=== PATIENT | male | born 1985 | race African-American/Black ===

== ENCOUNTER 2016-07-27 03:39 | Emergency (ER) | payer BC ==
[2016-07-27] MEDS ORDERED: BUPIVACAINE HCL 0.5 % INJ/PF 30 ML SDV INJ ONE (06:47)
--- NOTE | 2016-07-27 06:49 | ER Document Report ---
ED General - General Chief Complaint: Toothache Stated Complaint: TOOTHACHE Mode of Arrival: Ambulatory Information source: Patient Notes: 31-year-old male presents with complaints of left molar dental pain of now 3-4 day duration. Patient was seen by a primary care physician will start him on ciprofloxacin. Patient notes that symptoms have worsened since. Denies any fevers or chills admits to a bad taste in his mouth. Patient has had a history of dental issues. Denies any difficulty breathing swallowing or any other respiratory concerns TRAVEL OUTSIDE OF THE [place] IN LAST 30 DAYS: No - HPI Onset: Other - 3-4 day duration Onset/Duration: Persistent Quality of pain: Achy, Sharp Severity: Mild Pain Level: 1 Associated symptoms: Other - Dental pain Exacerbated by: Food Relieved by: Denies Similar symptoms previously: Yes Recently seen / treated by doctor: Yes - Related Data Allergies/Adverse Reactions: amoxicillin [Amoxicillin] Allergy (Verified 03/11/16 04:27) Past Medical History - Social History Smoking Status: Current Every Day Smoker Cigarette use (# per day): Yes Chew tobacco use (# tins/day): No Smoking Education Provided: No Frequency of alcohol use: Occasional Drug Abuse: None Family History: Reviewed & Not Pertinent, Arthritis, CAD, Hyperlipidemia, Hypertension, Malignancy - Past Medical History Cardiac Medical History: Reports: Hx Hypercholesterolemia, Hx Hypertension Pulmonary Medical History: Reports: Hx Asthma Renal/ Medical History: Denies: Hx Peritoneal Dialysis GI Medical History: Reports: Hx Colonoscopy Musculoskeltal Medical History: Reports Hx Musculoskeletal Trauma Traumatic Medical History: Reports: Hx Fractures - right wrist and thumb Past Surgical History: Reports: Hx Adenoidectomy, Hx Tonsillectomy - Immunizations Immunizations up to date: Yes Hx Diphtheria, Pertussis, Tetanus Vaccination: Yes - 2011 Review of Systems - Review of Systems Notes: REVIEW OF SYSTEMS: CONSTITUTIONAL : Denies fever, chills, or sweats. Denies recent illness. EENT: Admits to dental pain CARDIOVASCULAR: Denies chest pain. Denies palpitations or racing or irregular heart beat. Denies ankle edema. RESPIRATORY: Denies cough, cold, or chest congestion. Denies shortness of breath, difficulty breathing, or wheezing. GASTROINTESTINAL: Denies abdominal pain or distention. Denies nausea, vomiting , or diarrhea. Denies blood in vomitus, stools, or per rectum. Denies black, tarry stools. Denies constipation. GENITOURINARY: Denies difficulty urinating, painful urination, burning, frequency, blood in urine, or discharge. MUSCULOSKELETAL: Denies back or neck pain or stiffness. Denies joint pain or swelling. SKIN: Denies rash, lesions or sores. HEMATOLOGIC : Denies easy bruising or bleeding. LYMPHATIC: Denies swollen, enlarged glands. NEUROLOGICAL: Denies confusion or altered mental status. Denies passing out or loss of consciousness. Denies dizziness or lightheadedness. Denies headache. Denies weakness or paralysis or loss of use of either side. Denies problems with gait or speech. Denies sensory loss, numbness, or tingling. Denies seizures. PSYCHIATRIC: Denies anxiety or stress. Denies depression, suicidal ideation, or homicidal ideation. ALL OTHER SYSTEMS REVIEWED AND NEGATIVE. Dictation was performed using [employer] recognition software PHYSICAL EXAMINATION: GENERAL: Well-appearing, well-nourished and in no acute distress. HEAD: Atraumatic, normocephalic. EYES: Pupils equal round extraocular movements intact, conjunctiva are normal. ENT: Left lower molar fractured, no abscess noted NECK: Normal range of motion LUNGS: No respiratory distress Musculoskeletal: Normal range of motion NEUROLOGICAL: Normal speech, normal gait. PSYCH: Normal mood, normal affect. SKIN: Warm, Dry, normal turgor, no rashes or lesions noted. Physical Exam - Vital signs Vitals: Temp Pulse Resp BP Pulse Ox 98.4 F 77 18 151/97 H 97 07/27/16 03:43 07/27/16 03:43 07/27/16 03:43 07/27/16 03:43 07/27/16 03:43 Course - Re-evaluation Re-evalutation: 07/27/16 18:44 A left inferior alveolar nerve block was performed with complete resolution of the patient's pain. He will be discharged home with antibiotics. Patient has been instructed to stop taking Cipro for his dental pain. - Vital Signs Vital signs: Temp Pulse Resp BP Pulse Ox 98.0 F 68 18 160/95 H 98 07/27/16 07:25 07/27/16 07:25 07/27/16 07:25 07/27/16 07:25 07/27/16 07:25 Procedures - Additional Procedures inferior alveolar nerve block Time performed: 08:00 - left inferior alveolar nerve block performed using 0.5% Sensorcaine 5 mL with complete resolution complication Discharge - Discharge Clinical Impression: Tooth pain, dental fracture, Encounter for smoking cessation counseling Condition: Stable Disposition: HOME, SELF-CARE Instructions: Toothache ([facility]) Additional Instructions: Please follow up with your dentist on per your previous appt Prescriptions: Clindamycin HCl 300 mg PO Q6 #40 capsule Hydrocodone/Acetaminophen [[place] 5-325 mg Tablet] 1 tab PO Q6 #10 tablet Forms: Smoking Cessation Education
[2016-07-27 07:26] VITALS: BP 160/95
== END 2016-07-27 07:27 | disposition home or self-care (01) ==
LOC: ER 03:39
PROC: 3E0T3BZ Introduction of Anesthetic Agent into Peripheral Nerves and Plexi, Percutaneous Approach (ICD-10-PCS; principal; 2016-07-27)
DX: K08.89 Other specified disorders of teeth and supporting structures (principal); R43.8 Other disturbances of smell and taste; F17.210 Nicotine dependence, cigarettes, uncomplicated; I10 Essential (primary) hypertension; J45.909 Unspecified asthma, uncomplicated; Z88.0 Allergy status to penicillin
CPT/HCPCS: 99282

== ENCOUNTER 2016-08-26 18:36 | Emergency (ER) | payer BC ==
[2016-08-26 22:09] LABS: APPEARANCE,URINE CLEAR; BILIRUBIN,URINE NEGATIVE (NEGATIVE); GLUCOSE, URINE NEGATIVE (NEGATIVE); KETONES,URINE NEGATIVE (NEGATIVE); LEUKOCYTE ESTERASE,URINE NEGATIVE (NEGATIVE); NITRITE,URINE NEGATIVE (NEGATIVE); PROTEIN,URINE NEGATIVE (NEGATIVE); URINE SPECIFIC GRAVITY 1.006; UROBILINOGEN,URINE NEGATIVE mg/dL (<2.0)
--- NOTE | 2016-08-26 23:02 | ER Document Report ---
ED General - General Chief Complaint: Back Pain Stated Complaint: ABDOMINAL PAIN, BACK PAIN Notes: Patient is a 31 year old male who presents with complaint of having some darkening of his urine, some pain to his lower back or both kidneys, and some mild sure you. He says since arriving to ER he's been drinking water and a lot of his symptoms have cleared and improved and his urine seems be clear. He is working in the heat for last several days. 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 He's had no diarrhea. No vomiting. No fevers. He denies concerns for sexually transmitted disease. He said no abnormal discharge from his penis. He says some pain does radiate into the genital area. He has not had redness or swelling to the genitals. TRAVEL OUTSIDE OF THE [place] IN LAST 30 DAYS: No - Related Data Allergies/Adverse Reactions: amoxicillin [Amoxicillin] Allergy (Verified 03/11/16 04:27) Past Medical History - Social History Smoking Status: Never Smoker Frequency of alcohol use: None Drug Abuse: None Family History: Reviewed & Not Pertinent, Arthritis, CAD, Hyperlipidemia, Hypertension, Malignancy Patient has suicidal ideation: No Patient has homicidal ideation: No - Past Medical History Cardiac Medical History: Reports: Hx Hypercholesterolemia, Hx Hypertension Pulmonary Medical History: Reports: Hx Asthma Renal/ Medical History: Denies: Hx Peritoneal Dialysis GI Medical History: Reports: Hx Colonoscopy Musculoskeltal Medical History: Reports Hx Musculoskeletal Trauma Traumatic Medical History: Reports: Hx Fractures - right wrist and thumb Past Surgical History: Reports: Hx Adenoidectomy, Hx Tonsillectomy - Immunizations Immunizations up to date: Yes Hx Diphtheria, Pertussis, Tetanus Vaccination: Yes - 2011 Review of Systems - Review of Systems Notes: My Normal Review Basic REVIEW OF SYSTEMS: CONSTITUTIONAL : Denies fever, chills, or sweats. Denies recent illness. RESPIRATORY: Denies cough, cold, or chest congestion. Denies shortness of breath, difficulty breathing, or wheezing. GASTROINTESTINAL: Denies abdominal pain. Denies nausea, vomiting, or diarrhea. Denies constipation. Last BM: GENITOURINARY: Some dysuria. Dark-colored urine. MUSCULOSKELETAL: Bilateral positive Keagan's sign. SKIN: Denies rash or skin lesions. NEUROLOGICAL: Denies altered mental status or loss of consciousness. Denies headache. ALL OTHER SYSTEMS REVIEWED AND NEGATIVE. Physical Exam - Vital signs Vitals: Temp Pulse Resp BP Pulse Ox 98.9 F 93 18 162/99 H 99 08/26/16 19:05 08/26/16 19:05 08/26/16 19:05 08/26/16 19:05 08/26/16 19:05 - Notes Notes: General Appearance: Well nourished, alert, cooperative, no acute distress, no obvious discomfort. Well-appearing. Vitals: reviewed, See vital signs table. Head: no swelling or tenderness to the head Eyes: PERRL, EOMI, Conjuctiva clear Mouth: No decreasd moisture Lungs: No wheezing, No rales, No rhonci, No accessory muscle use, good air exchange bilaterally. Heart: Normal rate, Regular rythm, No murmur, no rub Abdomen: Normal BS, soft, No rigidity, No abdominal tenderness, No guarding, no rebound, no abdominal masses, no organomegaly Genital: No redness or inflammation or swelling to the genitalia. No abnormal discharge. Back: Bilateral positive Keagan sign is worse on the left. Extremities: strength 5/5 in all extremities, good pulses in all extremities, no swelling or tenderness in the extremities, no edema. Skin: warm, dry, appropriate color, no rash Neuro: speech clear, oriented x 3, normal affect, responds appropriately to questions. Course - Vital Signs Vital signs: Temp Pulse Resp BP Pulse Ox 97.8 F 62 18 136/76 H 97 08/27/16 00:48 08/27/16 00:48 08/27/16 00:48 08/27/16 00:48 08/27/16 00:48 - Laboratory Result Diagrams: 08/26/16 23:15 Laboratory results interpreted by me: 08/26/16 08/26/16 19:10 23:15 BUN 21 H Creatinine 1.97 H Est GFR ( Amer) 49 L Est GFR (Non-Af Amer) 40 L Creatine Kinase 461 H Urine Blood MODERATE H - Transfer of Care Notes: 08/27/16 06:49 I suspect the patient's doctor and he was having as well as back pain is probably related dehydration. He had been working out in the heat for last 2 days. His urinalysis showed no signs of infection. There was small blood. His creatinine is slightly elevated. I informed him that he needs to continue drink lots of liquids to stay out of heat for neck supple days. I encourage him to have his creatinine and urinalysis rechecked on Monday. Encouraged return to ER if has any worsening of his symptoms. Patient agrees with plan will be discharged home. Informed patient that he cannot take Motrin, ibuprofen , Advil, or any NSAID medications. I encouraged him to take Tylenol for pain. Dictation of this chart was performed using voice recognition software; therefore, there may be some unintended grammatical errors. Discharge - Discharge Clinical Impression: Hematuria, Dehydration, Renal insufficiency Disposition: HOME, SELF-CARE Additional Instructions: Please drink lots of noncaffeinated and nonalcoholic liquids over the next 48 hours. Do not go into the heat at all over the next 48 hours. Please follow up with your doctor or the ER on Monday to have your urine and kidney function rechecked. Return to the ER immediately if you feel unwell in any way.
[2016-08-26] MEDS ORDERED: ACETAMINOPHEN 325 MG TABLET PO ONE (23:48)
[2016-08-26 23:49] LABS: ANION GAP 14 (5-19); BLOOD UREA NITROGEN 21 mg/dL (7-20); CALCIUM 9.7 mg/dL (8.4-10.2); CARBON DIOXIDE 24 mmol/L (22-30); CHLORIDE 106 mmol/L (98-107); CREATINE KINASE 461 U/L (55-170); CREATININE RESULT 1.97 mg/dL (0.52-1.25); GLUCOSE 95 mg/dL (75-110); SODIUM 144.3 mmol/L (137-145)
[2016-08-26 23:50] LABS: POTASSIUM 4.5 mmol/L (3.6-5.0)
[2016-08-27 00:50] VITALS: BP 136/76
== END 2016-08-27 00:50 | disposition home or self-care (01) ==
LOC: ER 18:36
DX: R31.9 Hematuria, unspecified (principal); E86.0 Dehydration; N28.9 Disorder of kidney and ureter, unspecified; R30.0 Dysuria; I10 Essential (primary) hypertension; Z88.0 Allergy status to penicillin; J45.909 Unspecified asthma, uncomplicated
CPT/HCPCS: 36415; 76770; 80048; 81001; 82550; 82962; 99284

== ENCOUNTER 2018-04-22 00:40 | Emergency (ER) | payer BC ==
[2018-04-22] MEDS ORDERED: ACETAMINOPHEN 325 MG TABLET PO ONE (01:16)
[2018-04-22] MEDS ORDERED: KETOROLAC TROMETHAMINE 60 MG/2 ML SDV IM ONE (01:16)
[2018-04-22] MEDS ORDERED: CLINDAMYCIN HCL 150 MG CAPSULE PO ONE (01:17)
[2018-04-22] MEDS ORDERED: BENZONATATE 100 MG CAPSULE PO ONE (01:17)
--- NOTE | 2018-04-22 01:18 | ER Document Report ---
ED General - General Chief Complaint: Toothache Stated Complaint: TOOTHACHE Time Seen by Provider: 04/22/18 01:16 Notes: Patient is a 33-year-old male without chronic medical problems who presents with several days of progressively worsening left posterior left mandibular molar pain. Patient states that he saw his dentist, had a Placed without root canal and that the pain has now gotten progressively worse since that time. He saw his dentist, started on clindamycin but has not yet filled the prescription. He states that he has a dull, constant, severe throbbing pain to the affected area that has been worsening over the past several days. He states it is now preventing him from sleeping. He has tried aggressive doses of ibuprofen up to 1600 mg per dose which provides only minimal relief. States that any attempt at eating or drinking worsens the pain. No difficulty breathing or swallowing. No fever or constitutional symptoms. States this feels similar to when he has had dental infections in the past. TRAVEL OUTSIDE OF THE [place] IN LAST 30 DAYS: No - Related Data Allergies/Adverse Reactions: amoxicillin [Amoxicillin] Allergy (Verified 03/11/16 04:27) Past Medical History - General Information source: Patient - Social History Smoking Status: Current Every Day Smoker Frequency of alcohol use: None Drug Abuse: None Lives with: Alone Family History: Reviewed & Not Pertinent, Arthritis, CAD, Hyperlipidemia, Hypertension, Malignancy Patient has suicidal ideation: No Patient has homicidal ideation: No - Past Medical History Cardiac Medical History: Reports: Hx Hypercholesterolemia, Hx Hypertension Pulmonary Medical History: Reports: Hx Asthma Renal/ Medical History: Denies: Hx Peritoneal Dialysis GI Medical History: Reports: Hx Colonoscopy Musculoskeletal Medical History: Reports Hx Musculoskeletal Trauma Traumatic Medical History: Reports: Hx Fractures - right wrist and thumb Past Surgical History: Reports: Hx Adenoidectomy, Hx Tonsillectomy - Immunizations Immunizations up to date: Yes Hx Diphtheria, Pertussis, Tetanus Vaccination: Yes - 2011 Review of Systems - Review of Systems Notes: Constitutional: Negative for fever. HENT: Positive for dental pain Eyes: Negative for visual changes. Cardiovascular: Negative for chest pain. Respiratory: Negative for shortness of breath. Gastrointestinal: Negative for abdominal pain, vomiting or diarrhea. Genitourinary: Negative for dysuria. Musculoskeletal: Negative for back pain. Skin: Negative for rash. Neurological: Negative for headaches, weakness or numbness. 10 point ROS negative except as marked above and in HPI. Physical Exam - Vital signs Vitals: Temp Pulse Resp BP Pulse Ox 98.9 F 67 18 170/100 H 96 04/22/18 00:56 04/22/18 00:56 04/22/18 00:56 04/22/18 00:56 04/22/18 00:56 Interpretation: Hypertensive Notes: PHYSICAL EXAMINATION: GENERAL: Well-appearing, well-nourished and in no acute distress. HEAD: Atraumatic, normocephalic. EYES: Pupils equal round and reactive to light, extraocular movements intact, sclera anicteric, conjunctiva are normal. ENT: nares patent, oropharynx clear without exudates. Moist mucous membranes. There is a small crack to the posterior aspect of the most posterior left mandibular molar without associated gumline swelling or facial swelling. Uvula is midline. Airway is widely patent. NECK: Normal range of motion, supple without lymphadenopathy LUNGS: Breath sounds clear to auscultation bilaterally and equal. No wheezes rales or rhonchi. HEART: Regular rate and rhythm without murmurs ABDOMEN: Soft, nontender, normoactive bowel sounds. No guarding, no rebound. No masses appreciated. EXTREMITIES: Normal range of motion, no pitting or edema. No cyanosis. NEUROLOGICAL: No focal neurological deficits. Moves all extremities spontaneously and on command. PSYCH: Normal mood, normal affect. SKIN: Warm, Dry, normal turgor, no rashes or lesions noted. Course - Re-evaluation Re-evalutation: 04/22/18 01:17 Presentation is most consistent with likely an infected tooth. Airway is patent. Vitals within normal limits. Patient is able swallow without any difficulty. There is no significant facial swelling. No evidence of Yifan angina, apical abscess, or airway obstruction. Patient already has antibiotics prescribed to him but has not yet started them. I've instructed to follow-up with dentistry as earliest ability for definitive management. At this time will discharge with return precautions and follow-up recommendations. Verbal discharge instructions given a the bedside and opportunity for questions given. Medication warnings reviewed. Patient is in agreement with this plan and has verbalized understanding of return precautions and the need for primary care follow-up in the next 24-72 hours. - Vital Signs Vital signs: Temp Pulse Resp BP Pulse Ox 98.5 F 70 18 159/90 H 98 04/22/18 02:27 04/22/18 02:27 04/22/18 02:27 04/22/18 02:27 04/22/18 02:27 Discharge - Discharge Clinical Impression: Pain, dental Condition: Good Disposition: HOME, SELF-CARE Additional Instructions: You have been seen for dental pain. It is very important that you follow-up with a dentist for definitive care. Please return if you develop fever greater than 101, swelling in your face, vomiting, difficulty breathing or swallowing, or any other symptoms that are concerning to you. For your pain: Take ibuprofen 600 mg and acetaminophen 1000 mg every 6 hours together as needed for pain.
[2018-04-22] MEDS ORDERED: HYDROCODONE/ACETAMINOPHEN 5-325 MG (6 TAB/ER DISP) PO PRN (01:26)
[2018-04-22] MEDS ORDERED: CLINDAMYCIN HCL 150 MG CAPSULE ONE (02:04)
[2018-04-22 02:28] VITALS: BP 159/90
== END 2018-04-22 02:22 | disposition home or self-care (01) ==
LOC: ER 00:40
DX: K08.89 Other specified disorders of teeth and supporting structures (principal); F17.200 Nicotine dependence, unspecified, uncomplicated; I10 Essential (primary) hypertension; J45.909 Unspecified asthma, uncomplicated
CPT/HCPCS: 99282; 96372; J1885

== ENCOUNTER 2019-05-30 08:43 | Emergency (ER) | payer BC ==
[2019-05-30] MEDS ORDERED: ALBUTEROL SULFATE 0.083% NEB 2.5 MG/3 ML AMPUL NEB ONE (09:33)
--- NOTE | 2019-05-30 09:34 | ER Document Report ---
HPI - HPI Patient complains to provider of: Upper respiratory symptoms Time Seen by Provider: 05/30/19 09:29 Pain Level: 3 Notes: 34-year-old male to the emergency department with complaints of cough chest congestion chest tightness that began yesterday. He states that it is gotten worse overnight. He states his has a similar symptom but it seems to be more in her head and in her chest. He admits to fevers and chills. He did take Tylenol prior to arrival. He states that when his fever breaks he sweats. He denies any chest pain, shortness of breath. He does admit to body aches. He did not get a flu shot this season. He is a smoker. He has a history of childhood asthma. He has never been hospitalized or intubated. - ROS Systems Reviewed and Negative: Yes All other systems reviewed and negative - CONSTITUTIONAL Constitutional: REPORTS: Fever. DENIES: Chills - EENT EENT: REPORTS: Sore Throat, Congestion - NEURO Neurology: REPORTS: Headache - RESPIRATORY Respiratory: REPORTS: Coughing. DENIES: Trouble Breathing - GASTROINTESTINAL Gastrointestinal: DENIES: Abdominal Pain, Nausea, Patient vomiting, Diarrhea, Constipation - MUSCULOSKELETAL Musculoskeletal: REPORTS: Extremity pain - DERM Skin Color: Normal Skin Problems: None Past Medical History - General Information source: Patient - Social History Smoking Status: Current Every Day Smoker Frequency of alcohol use: Occasional Drug Abuse: None Lives with: Spouse/Significant other Family History: Reviewed & Not Pertinent, Arthritis, CAD, Hyperlipidemia, Hypertension, Malignancy Patient has suicidal ideation: No Patient has homicidal ideation: No - Past Medical History Cardiac Medical History: Reports: Hx Hypercholesterolemia, Hx Hypertension Pulmonary Medical History: Reports: Hx Asthma Renal/ Medical History: Denies: Hx Peritoneal Dialysis GI Medical History: Reports: Hx Colonoscopy Musculoskeletal Medical History: Reports Hx Musculoskeletal Trauma Traumatic Medical History: Reports: Hx Fractures - right wrist and thumb Past Surgical History: Reports: Hx Adenoidectomy, Hx Tonsillectomy - Immunizations Immunizations up to date: Yes Hx Diphtheria, Pertussis, Tetanus Vaccination: Yes - 2011 Vertical Provider Document - CONSTITUTIONAL Agree With Documented VS: Yes Exam Limitations: No Limitations General Appearance: WD/WN, No Apparent Distress - INFECTION CONTROL TRAVEL OUTSIDE OF THE [place] IN LAST 30 DAYS: No - HEENT HEENT: Atraumatic, Normal ENT Exam, Normocephalic, PERRLA. negative: Pharyngeal Exudate, Pharyngeal Tenderness, Pharyngeal Erythema - NECK Neck: Normal Inspection, Supple - RESPIRATORY Respiratory: Breath Sounds Normal, No Respiratory Distress. negative: Rales, Rhonchi, Wheezing - CARDIOVASCULAR Cardiovascular: Regular Rate, Regular Rhythm, No Murmur - GI/ABDOMEN Gastrointestinal: Abdomen Soft, Abdomen Non-Tender - BACK Back: Normal Inspection - MUSCULOSKELETAL/EXTREMETIES Musculoskeletal/Extremeties: MAEW, FROM, Non-Tender - NEURO Level of Consciousness: Awake, Alert - DERM Integumentary: Warm, Dry, No Rash Course - Re-evaluation Re-evalutation: 06/01/19 Impression: Flulike syndrome, cough. His symptoms just started 2 days ago. Chest x-ray is negative for pneumonia. Will discharge home with symptomatic relief. Encouraged to return if any worsening. Encouraged to push fluids. Patient agrees with plan - Vital Signs Vital signs: Temp Pulse Resp BP Pulse Ox 99.6 F 119 H 20 175/95 H 94 05/30/19 08:48 05/30/19 08:48 05/30/19 08:48 05/30/19 08:48 05/30/19 08:48 Discharge - Discharge Clinical Impression: Flu-like symptoms, Cough Condition: Stable Disposition: HOME, SELF-CARE Instructions: Influenza ([facility]) Additional Instructions: Push fluids. Alternate between Tylenol Motrin for fever control. Use cough medicine as prescribed, use inhaler, take steroids. Return if worsening symptoms such as chest pain, worsening shortness of breath, inability to keep medicines down, or any other complaints. Prescriptions: Methylprednisolone [Medrol Dosepack (4 mg/Tab) 21 Tab/Dosepak] 4 mg PO ASDIR PRN #21 tab.ds.pk PRN Reason: Albuterol Sulfate [Proair HFA Inhalation Aerosol 8.5 gm MDI] 2 puff IH Q4H PRN #1 mdi PRN Reason: Promethazine/Dextromethorphan [Promethazine-Dm Syrup] 5 ml PO QID #118 ml Forms: Return to Work Referrals: [facility] [Provider Group] - Follow up as needed
--- NOTE | 2019-05-30 10:13 | RADIOLOGY REPORT (SQ) ---
EXAM DESCRIPTION: CHEST 2 VIEWS COMPLETED DATE/TIME: 05/30/2019 9:55 am REASON FOR STUDY: cough, chest congestion, chest tightness COMPARISON: Two-view chest 05/03/2015 EXAM PARAMETERS: NUMBER OF VIEWS: two views TECHNIQUE: Digital Frontal and Lateral radiographic views of the chest acquired. RADIATION DOSE: NA LIMITATIONS: none FINDINGS: LUNGS AND PLEURA: No opacities, masses or pneumothorax. No pleural effusion. MEDIASTINUM AND HILAR STRUCTURES: No masses or contour abnormalities. HEART AND VASCULAR STRUCTURES: Heart normal size. No evidence for failure. BONES: No acute findings. HARDWARE: None in the chest. OTHER: No other significant finding. IMPRESSION: NO ACUTE RADIOGRAPHIC FINDING IN THE CHEST. TECHNICAL DOCUMENTATION: JOB ID: [id number] [employer]- All Rights Reserved Reading location - IP/workstation name: [facility]
[2019-05-30 10:42] VITALS: BP 138/82
== END 2019-05-30 10:51 | disposition home or self-care (01) ==
LOC: ER 08:43
DX: J02.9 Acute pharyngitis, unspecified (principal); R07.89 Other chest pain; R05 Cough; M79.10 Myalgia, unspecified site; R51 Headache; F17.200 Nicotine dependence, unspecified, uncomplicated; E78.00 Pure hypercholesterolemia, unspecified; I10 Essential (primary) hypertension
CPT/HCPCS: 71046; 94640; 99283

== ENCOUNTER 2019-06-02 20:20 | Emergency (ER) | payer BC ==
[2019-06-02] MEDS ORDERED: IPRATROPIUM/ALBUTEROL 0.5-2.5 MG/3 ML AMPUL NEB ONE (20:48)
[2019-06-02] MEDS ORDERED: NORMAL SALINE 1000 ML 1,000 ML IV ONE (20:48)
--- NOTE | 2019-06-02 20:49 | ER Document Report ---
ED Medical Screen (RME) - General Chief Complaint: Flu Symptoms Stated Complaint: SHORTNESS OF BREATH Time Seen by Provider: 06/02/19 20:42 Notes: Patient is a 34-year-old male who presents the emergency department with a chief complaint of shortness of breath. He was seen here on May 30 and was diagnosed with flulike symptoms. He was started on a Medrol Dosepak, albuterol, and Promethazine DM. He states that he still short of breath. Patient has quit smoking as of this past Monday when he was seen here in the emergency department. He has a history of asthma. Exam: Oxygen saturation 92% on room air. Diminished breath sounds throughout all lung rivera. I have greeted and performed a rapid initial assessment of this patient. A comprehensive ED assessment and evaluation of the patient, analysis of test results and completion of medical decision making process will be conducted by an additional ED providers. TRAVEL OUTSIDE OF THE [place] IN LAST 30 DAYS: No - Related Data Allergies/Adverse Reactions: amoxicillin [Amoxicillin] Allergy (Verified 03/11/16 04:27) Home Medications: steriod. albuterol. cough med. ibuprofen Past Medical History - Past Medical History Cardiac Medical History: Reports: Hx Hypercholesterolemia, Hx Hypertension Pulmonary Medical History: Reports: Hx Asthma Renal/ Medical History: Denies: Hx Peritoneal Dialysis GI Medical History: Reports: Hx Colonoscopy Musculoskeltal Medical History: Reports Hx Musculoskeletal Trauma Traumatic Medical History: Reports: Hx Fractures - right wrist and thumb Past Surgical History: Reports: Hx Adenoidectomy, Hx Tonsillectomy - Immunizations Immunizations up to date: Yes Hx Diphtheria, Pertussis, Tetanus Vaccination: Yes - 2011 Physical Exam - Vital signs Vitals: Temp Pulse Resp BP Pulse Ox 98.1 F 110 H 22 H 132/71 H 92 06/02/19 20:27 06/02/19 20:27 06/02/19 20:27 06/02/19 20:27 06/02/19 20:27 Course - Vital Signs Vital signs: Temp Pulse Resp BP Pulse Ox 98.1 F 110 H 22 H 132/71 H 92 06/02/19 20:27 06/02/19 20:27 06/02/19 20:27 06/02/19 20:27 06/02/19 20:27
[2019-06-02] MEDS ORDERED: METHYLPREDNISOLONE INJ 125 MG/2 ML SDV IV ONE (20:51)
[2019-06-02] MEDS ORDERED: PREDNISONE 20 MG TABLET PO ONE (21:23)
--- NOTE | 2019-06-02 21:38 | ER Document Report ---
Entered by LONA PAREDES SCRIBE 06/02/[id number] Acting as scribe for:JEVON PANG IV, MD ED General - General Chief Complaint: Flu Symptoms Stated Complaint: SHORTNESS OF BREATH Time Seen by Provider: 06/02/19 20:42 Mode of Arrival: Ambulatory Information source: Patient Notes: This 34 year old male patient with a history of asthma presents to the ED today with complaints of shortness of breath that began prior to arrival. Patient states that experienced shortness of breath when he walked a short distance from his bed to the bathroom. Patient notes that he has never had these symptoms before even as a child with asthma. Patient states that he was seen here x3 days ago for flu-like symptoms and was prescribed Medrol Dosepak, albuterol, and Promethazine DM. Patient notes that he recently stopped smoking x5 days ago and that went he quit smoking the first time, he was able to refrain from smoking with Chantix for x2 years. TRAVEL OUTSIDE OF THE [place] IN LAST 30 DAYS: No - Related Data Allergies/Adverse Reactions: amoxicillin [Amoxicillin] Allergy (Verified 03/11/16 04:27) Home Medications: steriod. albuterol. cough med. ibuprofen Past Medical History - General Information source: Patient - Social History Smoking Status: Former Smoker Cigarette use (# per day): No Chew tobacco use (# tins/day): No Smoking Education Provided: No Family History: Reviewed & Not Pertinent, Arthritis, CAD, Hyperlipidemia, Hypertension, Malignancy Patient has suicidal ideation: No Patient has homicidal ideation: No - Past Medical History Cardiac Medical History: Reports: Hx Hypercholesterolemia, Hx Hypertension Pulmonary Medical History: Reports: Hx Asthma GI Medical History: Reports: Hx Colonoscopy Musculoskeletal Medical History: Reports Hx Musculoskeletal Trauma Traumatic Medical History: Reports: Hx Fractures - right wrist and thumb Past Surgical History: Reports: Hx Adenoidectomy, Hx Tonsillectomy - Immunizations Immunizations up to date: Yes Hx Diphtheria, Pertussis, Tetanus Vaccination: Yes - 2011 Review of Systems - Review of Systems Constitutional: Other - Flu-like symptoms EENT: No symptoms reported Cardiovascular: No symptoms reported Respiratory: See HPI, Short of breath Gastrointestinal: No symptoms reported Genitourinary: No symptoms reported Male Genitourinary: No symptoms reported Musculoskeletal: No symptoms reported Skin: No symptoms reported Hematologic/Lymphatic: No symptoms reported Neurological/Psychological: No symptoms reported -: Yes All other systems reviewed and negative Physical Exam - Vital signs Vitals: Temp Pulse Resp BP Pulse Ox 98.1 F 110 H 22 H 132/71 H 92 06/02/19 20:27 06/02/19 20:27 06/02/19 20:27 06/02/19 20:27 06/02/19 20:27 - General General appearance: Alert - HEENT Head: Normocephalic, Atraumatic Eyes: Normal Pupils: PERRL - Respiratory Respiratory status: No respiratory distress Chest status: Nontender Breath sounds: Normal Chest palpation: Normal - Cardiovascular Rhythm: Regular Heart sounds: Normal auscultation Murmur: No - Abdominal Inspection: Normal Distension: No distension Bowel sounds: Normal Tenderness: Nontender Organomegaly: No organomegaly - Back Back: Normal, Nontender - Extremities General upper extremity: Normal inspection General lower extremity: Normal inspection - Neurological Neuro grossly intact: Yes - Psychological Associated symptoms: Normal affect, Normal mood - Skin Skin Temperature: Warm Skin Moisture: Dry Skin Color: Normal Course - Re-evaluation Re-evalutation: 06/02/19 22:12 Results of ED MSE discussed with patient. All questions were answered prior to discharge. Emergency signs and symptoms, reasons to return to the emergency dep artment discussed with patient. - Vital Signs Vital signs: Temp Pulse Resp BP Pulse Ox 98.1 F 110 H 22 H 132/71 H 92 06/02/19 20:27 06/02/19 20:27 06/02/19 20:27 06/02/19 20:27 06/02/19 20:27 - Laboratory Result Diagrams: 06/02/19 21:16 06/02/19 21:16 - Diagnostic Test Radiology reviewed: Reports reviewed Discharge - Discharge Clinical Impression: Encounter for tobacco use cessation counseling Acute bronchitis Qualifiers: Bronchitis organism: unspecified organism Qualified Code(s): J20.9 - Acute bronchitis, unspecified Condition: Good Disposition: HOME, SELF-CARE Additional Instructions: Return to the Emergency Department without delay if any worse. HOME CARE INSTRUCTIONS & INFORMATION: Thank you for choosing us for your medical needs. We hope you're satisfied with the care you received. After you leave, you must properly care for your problem and, at the same time, observe its progress. Any condition can change. Some illnesses can change rapidly over hours or days. If your condition worsens, return to the Emergency Department or see your physician promptly. ABOUT YOUR X-RAYS AND EKG'S: If you had an EKG or X-rays taken, they have been read by the Emergency Physician. The X-rays and EKG's will also be read by a Radiologist or Rock Loader within 24 hours. If discrepancies are noted, you will be notified by telephone. Please be certain the ED has a correct telephone number & address where you can be reached. Also, realize that some fractures or abnormalities do not show up on initial X-rays. If your symptoms continue, see your physician. ABOUT YOUR LABORATORY TEST: If you had laboratory tests, the results have been reviewed by the Emergency Physician. Some test results (for example cultures) may not be available for several days. You will be contacted if any test result shows you need additional treatment. Please be certain the ED has a correct telephone number and address where you can be reached. ABOUT YOUR MEDICATIONS: You will receive instructions on how to take your medi cine on the prescription label you receive. Additional information may be provided by the Pharmacy. If you have questions afterwards, call the ED for clarification or further instructions. Some prescribed medications may cause drowsiness. Do not perform tasks such as driving a car or operating machinery without consulting your Pharmacist. If you feel you need a refill of pain medication, your condition will need re-evaluation. Please do not call for a refill of any medication. ABOUT YOUR SIGNATURE: Signature of this document acknowledges to followin. Understanding that you received emergency treatment and that you may be released before al medical problems are known or treated. Please be certain the ED has a correct phone number & address where you can be reached. 2. Acknowledgement that you will arrange for follow-up care as recommended. 3. Authorization for the Emergency Physician to provide information to your follow-up Physician in order to maximize your care. AT ANY TIME, IF YOUR SYMPTOMS CHANGE SIGNIFICANTLY OR WORSEN OR YOU DEVELOP NEW SYMPTOMS, RETURN TO THE EMERGENCY DEPARTMENT IMMEDIATELY FOR RE-EVALUATION. OUR GOAL IS TO PROVIDE EXCELLENT MEDICAL CARE! WE HOPE THAT WE HAVE MET YOUR EXPECTATIONS DURING YOUR EMERGENCY DEPARTMENT VISIT AND THAT YOU FEEL YOU HAVE RECEIVED EXCELLENT CARE! Stop Smoking You should stop smoking. The tar and chemicals in cigarette smoke are reed rmful. Smoking has been shown to cause: Emphysema and chronic bronchitis Lung cancer Cancer of the mouth, larynx, stomach, and pancreas Heart disease and stroke Stillbirths and miscarriage Premature aging In addition, smoking increases the chances of respiratory infections and ear infections in children of smokers, and increases the risk of cancer in persons exposed to second-hand smoke. Classes are available to help you stop smoking. If you are serious about wanting to quit, we can help arrange this therapy for you, or you can contact the local lung or cancer association. Bronchitis You have acute bronchitis. This disease is an infection or inflammation of the air passageways in your lungs. Symptoms usually include cough, low grade fever, shortness of breath, and wheezing. The cough usually persists for a c ouple of weeks. Most cases of bronchitis get better without antibiotics. We prescribe antibiotics when we believe bacteria are damaging your airways, or if there's high risk the bronchitis will worsen into pneumonia. Increase your fluid intake. A cool mist humidifier may make your lungs more comfortable. An expectorant (cough medicine that loosens phlegm) can help. If you smoke, STOP!!! Recovery from bronchitis can be somewhat slow, but you should see improvement within a day or two. Repeated episodes of bronchitis may result in lung damage -- for example, chronic bronchitis, recurrent pneumonias, or emphysema. Call the doctor if you develop increasing fever, shortness of breath, chest pain, bloody sputum, or otherwise worsen. If you have not improved at all after several days, contact the physician. Prescriptions: Prednisone [Deltasone 20 mg Tablet] 3 tab PO DAILY 4 Days #12 tablet Albuterol Sulfate [Proair HFA Inhalation Aerosol 8.5 gm MDI] 2 puff IH Q4H PRN #1 mdi PRN Reason: I personally performed the services described in the documentation, reviewed and edited the documentation which was dictated to the scribe in my presence, and it accurately records my words and actions.
[2019-06-02 21:43] LABS: ABSOLUTE LYMPHOCYTES (AUTO) 1.7 10^3/uL (0.5-4.7); ABSOLUTE MONOCYTES (AUTO) 1.1 10^3/uL (0.1-1.4); ABSOLUTE NEUT (AUTO) 5.7 10^3/uL (1.7-8.2); BASOPHILS % (AUTO) 0.2 % (0-2); HEMOGLOBIN 17.9 g/dL (13.5-17.0); LYMPHOCYTES % (AUTO) 19.8 % (13-45); MEAN CORPUSCULAR HEMOGLOBIN 27.8 pg (27.0-33.4); MEAN CORPUSCULAR HGB CONC 33.1 g/dL (32.0-36.0); MEAN CORPUSCULAR VOLUME 84 fl (80-97); MONOCYTES % (AUTO) 12.5 % (3-13); PLATELET COUNT 200 10^3/uL (150-450); RED BLOOD COUNT 6.45 10^6/uL (4.35-5.55); RED CELL DISTRIBUTION WIDTH 14.3 % (11.5-14.0); SEGMENTED NEUTROPHILS % (AUTO) 67.5 % (42-78); TOTAL CELLS COUNTED % (AUTO) 100 %; WHITE BLOOD COUNT 8.5 10^3/uL (4.0-10.5)
--- NOTE | 2019-06-02 21:50 | RADIOLOGY REPORT (SQ) ---
EXAM DESCRIPTION: XR CHEST 1 VIEW COMPLETED DATE/TME: 06/02/2019 20:47 CLINICAL INDICATION: 34-year-old male with shortness of breath. TECHNIQUE: Single view, AP portable chest was obtained. COMPARISON: 05/03/2015. FINDINGS: Stable cardiac and mediastinal silhouette. Heart size is normal. RIGHT atrial prominence is again identified. Lung volumes grossly clear without focal opacity, pneumothorax or pleural effusions. The visualized bones are within normal limits. IMPRESSION: No acute cardiopulmonary abnormalities.
[2019-06-02 22:26] VITALS: BP 123/82
== END 2019-06-02 22:26 | disposition home or self-care (01) ==
LOC: ER 20:20
DX: J20.9 Acute bronchitis, unspecified (principal); R06.02 Shortness of breath; E78.00 Pure hypercholesterolemia, unspecified; I10 Essential (primary) hypertension; Z88.0 Allergy status to penicillin; Z87.891 Personal history of nicotine dependence
CPT/HCPCS: 36415; 85025; 71045; J7512; J7620; 94640; 99285

== ENCOUNTER 2019-06-03 19:05 | Emergency (ER) | payer BC ==
[2019-06-03] MEDS ORDERED: DEXAMETHASONE SOD PHOS INJ 10 MG/1 ML VIAL IM ONE (19:57)
[2019-06-03] MEDS ORDERED: IPRATROPIUM/ALBUTEROL 0.5-2.5 MG/3 ML AMPUL NEB ONE (19:57)
[2019-06-03] MEDS ORDERED: AZITHROMYCIN 250 MG TABLET PO ONE (20:00)
[2019-06-03] MEDS ORDERED: GUAIFENESIN/CODEINE PHOS 100-10 MG/ 5 ML UDC PO ONE (20:00)
--- NOTE | 2019-06-03 20:08 | ER Document Report ---
HPI - HPI Time Seen by Provider: 06/03/19 19:53 Pain Level: 4 Context: CHIEF COMPLAINT: Persistent cough and shortness of breath HPI: 34-year-old candid male presenting to the emergency department with continued shortness of breath with coughing. Patient with asthma history. Patient states he was seen several days ago and diagnosed with flulike symptoms. Patient recently stopped smoking. Patient has not had a fever but returned yesterday with shortness of breath and dyspnea with movement. Patient had a chest x-ray that did not show pneumonia. He states he was given a breathing treatment in the emergency department did feel slightly better going home but has been using his inhaler or nebulizer every 2-3 hours and taking his steroids without resolution of his shortness of breath especially with coughing episodes. States that the Phenergan with codeine is not helping the cough. ROS: See HPI - all other systems were reviewed and are otherwise negative Constitutional: no fever Eyes: no drainage, no blurred vision ENT: no runny nose, no sore throat Cardiovascular: no chest pain Resp: + SOB, + cough GI: no vomiting, no diarrhea, no abdominal pain : no dysuria Integumentary: no rash Allergy: no hives Musculoskeletal: no extremity pain or swelling Neurological: no numbness/tingling, no weakness MEDICATIONS: I agree with the patient medications as charted by the RN. ALLERGIES: I agree with the allergies as charted by the RN. PAST MEDICAL HISTORY/PAST SURGICAL HISTORY: Reviewed and agree as charted by RN. SOCIAL HISTORY: Reviewed and agree as charted by RN. FAMILY HISTORY: No significant familial comorbid conditions directly related to patient complaint EXAM: Reviewed vital signs as charted by RN. CONSTITUTIONAL: Alert and oriented and responds appropriately to questions. Well-appearing; well-nourished, moderate distress secondary to coughing HEAD: Normocephalic; atraumatic EYES: PERRL; Conjunctivae clear, sclerae non-icteric ENT: normal nose; no rhinorrhea; moist mucous membranes; pharynx without lesions noted, no uvula edema or deviation, no tonsillar hypertrophy, phonation normal NECK: Supple without meningismus; non-tender; no cervical lymphadenopathy, no masses CARD: RRR; no murmurs, no clicks, no rubs, no gallops; symmetric distal pulses RESP: Normal chest excursion without splinting or tachypnea; breath sounds clear and equal bilaterally; no wheezes, no rhonchi, no rales, pulse oximetry 97% on room air not hypoxic. Patient has a very spastic cough ABD/GI: Normal bowel sounds; non-distended; soft, non-tender, no rebound, no guarding; no palpable organomegaly or masses. BACK: The back appears normal and is non-tender to palpation, there is no CVA tenderness EXT: Normal ROM in all joints; non-tender to palpation; no cyanosis, no effusions, no edema SKIN: Normal color for age and race; warm; dry; good turgor; no acute lesions noted NEURO: Moves all extremities equally; Motor and sensory function intact PSYCH: The patient's mood and manner are appropriate. Grooming and personal hygiene are appropriate. MDM: 34-year-old male who recently stopped smoking presenting for evaluation of continued shortness of breath especially with coughing episodes. Very spastic cough. Will give breathing treatment and injectable Decadron here. Patient has albuterol at home by nebulizer, will add Atrovent. Will change patient from Phenergan with codeine to Hycodan as he is having difficulty with the cough at home. Patient may continue his previous steroid prescription. Should follow-up with PCP for reevaluation, on review of his chart chest x-ray and labs did not show acute emergent abnormalities. - REPRODUCTIVE Reproductive: DENIES: : Past Medical History - Social History Smoking Status: Current Every Day Smoker Family History: Reviewed & Not Pertinent, Arthritis, CAD, Hyperlipidemia, Hypertension, Malignancy Patient has suicidal ideation: No Patient has homicidal ideation: No - Past Medical History Cardiac Medical History: Reports: Hx Hypercholesterolemia, Hx Hypertension Pulmonary Medical History: Reports: Hx Asthma Renal/ Medical History: Denies: Hx Peritoneal Dialysis GI Medical History: Reports: Hx Colonoscopy Musculoskeletal Medical History: Reports Hx Musculoskeletal Trauma Traumatic Medical History: Reports: Hx Fractures - right wrist and thumb Past Surgical History: Reports: Hx Adenoidectomy, Hx Tonsillectomy - Immunizations Immunizations up to date: Yes Hx Diphtheria, Pertussis, Tetanus Vaccination: Yes - 2011 Vertical Provider Document - INFECTION CONTROL TRAVEL OUTSIDE OF THE [place] IN LAST 30 DAYS: No Course - Re-evaluation Re-evalutation: 06/03/19 20:46 Spastic cough much improved after breathing treatment. Will discharge on Atrovent to go with his albuterol at home, Hycodan, Zithromax - Vital Signs Vital signs: Temp Pulse Resp BP Pulse Ox 99.1 F 87 18 154/80 H 94 06/03/19 19:39 06/03/19 19:39 06/03/19 19:39 06/03/19 19:39 06/03/19 19:39 Discharge - Discharge Clinical Impression: Acute bronchitis with bronchospasm Condition: Stable Disposition: HOME, SELF-CARE Instructions: Asthma ([facility]) Additional Instructions: 1. take the medications as prescribed, if you were prescribed a cough medicine, no driving on narcotics 2. if you were prescribed an Albuterol inhaler, use it as instructed, 2 puffs every 4 hours as needed for cough/wheezing, if using the nebulizer use the DuoNeb 3. call your primary care provider as soon as possible to schedule recheck appt. in the office. 4. return to the ED for any worsening condition, shortness of breath or continued fever that does not resolve with Motrin/Tylenol Prescriptions: Ipratropium/Albuterol Sulfate [Duoneb 3 ml Ampul] 3 ml NEB [id number] PRN #1 vial.neb PRN Reason: Hydrocodone Bit/Homatropine [Hycodan Syrup 5-1.5 mg/5 ml Ud Cup] 5 ml PO Q12 7 Days udc Azithromycin [Zithromax 250 mg Tablet] 250 mg PO ASDIR PRN #6 tablet PRN Reason:
[2019-06-03 21:04] VITALS: BP 138/79
== END 2019-06-03 21:03 | disposition home or self-care (01) ==
LOC: ER 19:05
DX: J20.9 Acute bronchitis, unspecified (principal); R06.02 Shortness of breath; Z87.891 Personal history of nicotine dependence; E78.00 Pure hypercholesterolemia, unspecified; I10 Essential (primary) hypertension
CPT/HCPCS: 94640; 99283; 96372; J1100; J7620